=== PATIENT | female | born 1995 | race Caucasian/White ===

== ENCOUNTER 2017-11-08 16:51 | Emergency (ER) | payer SELFPAY ==
[2017-11-08] MEDS ORDERED: NS 500 ML IV ONE (16:54)
[2017-11-08 17:05] LABS: PLATELET COUNT 185 10^3/uL (150-400)
[2017-11-08 17:13] LABS: INR 0.98 (0.83-1.16); PROTIME(PATIENT) 13.2 SEC (12.0-15.0)
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
[2017-11-08] MEDS ORDERED: ONDANSETRON 4MG PREPACK#2 BTL TAKEHOME ONE (18:27)
[2017-11-08] MEDS ORDERED: CHLORDIAZEPOXIDE 25MG PREPK#6 BTL TAKEHOME ONE (18:27)
[2017-11-08 19:01] VITALS: BP 126/87
== END 2017-11-08 19:02 | disposition home or self-care (01) ==
DX: R10.84 Generalized abdominal pain (principal); F10.920 Alcohol use, unspecified with intoxication, uncomplicated; K76.0 Fatty (change of) liver, not elsewhere classified; F31.9 Bipolar disorder, unspecified; Z59.0 Homelessness
CPT/HCPCS: G0480